=== PATIENT | male | born 1995 | race Two or more races ===

== ENCOUNTER 2024-10-28 08:30 | Emergency (ER) | payer BC, OTHER ==
[~2024-10-28] VITALS: Ht 180.3 cm; Wt 156.7 kg
--- NOTE | 2024-10-28 10:58 | ED.PDOC ---
History of Present Illness HPI Comments 29 y/o M, with a Hx of morbid obesity and tobacco use, presents with c/o lower left leg pain and redness and left foot bruising, today. Patient endorses injuring his left leg and foot, while working out with weighted bar 5x days ago. Patient states on bar dropping and bouncing back before hitting the osborne and landing on his left foot. Patient reports on still being able to walk in addition to feeling pain only when pressure is applied to his front osborne area. Patient denies having any additional pertinent or relevant Hx in along with any additional injuries. Denies having any weakness, numbness, fever, chills, or other associated symptoms or modifiers at this time. Chief Complaint: Lower Extremity Time Seen by MD: 10:45 Reviewed Notes: Nurses Notes, Medications, Allergies Allergies: Coded Allergies: NO KNOWN ALLERGIES (Unverified , 10/28/24) Home Meds Active Scripts Tramadol HCl (Tramadol HCl) 50 Mg Tab, 50 MG PO Q12HP PRN for 5 Days, #10 TAB Prov:DEXTER SCHWARTZ MD 10/28/24 Clindamycin Hcl (Clindamycin Hcl) 300 Mg Cap, 1 CAP PO TID, #21 CAP Prov:DEXTER SCHWARTZ MD 10/28/24 Information Source: Patient Mode of Arrival: Ambulatory Severity: Moderate Timing: Days Duration: Since onset Prehospital treatment: None Past Medical History Past Medical History (Other): morbid obesity Surgical History: Denies all surgeries Family History Family History: Unknown Social History Smoker: Cigarettes Alcohol: Denies ETOH Use Drugs: Denies Drug Use Lives In: Home Constitutional: denies: chills, diaphoresis, fatigue, fever, malaise, sweats, weakness, others EENTM: denies: blurred vision, double vision, ear bleeding, ear discharge, ear drainage, ear pain, ear ringing, eye pain, eye redness, hearing loss, mouth alexei n, mouth swelling, nasal discharge, nose bleeding, nose congestion, nose pain, photophobia, tearing, throat pain, throat swelling, voice changes, others Respiratory: denies: cough, hemoptysis, orthopnea, SOB at rest, shortness of breath, SOB with excertion, stridor, wheezing, others Cardiovascular: denies: chest pain, dizzy spells, diaphoresis, Dyspnea on exertion, edema, irregular heart beat, left arm pain, lightheadedness, palpitations, PND, syncope, others Gastrointestinal: denies: abdomen distended, abdominal pain, blood streaked bowels, constipated, diarrhea, dysphagia, difficulty swallowing, hematemesis, melena, nausea, poor appetite, poor fluid intake, rectal bleeding, rectal pain, vomiting, others Genitourinary: denies: burning, dysuria, flank pain, frequency, hematuria, incontinence, penile discharge, penile sore, pain, testicle pain, testicle swelling, urgency, others Neurological: denies: dizziness, fainting, headache, left sided numbness, left sided weakness, numbness, paresthesia, pre-existing deficit, right sided numbness, right sided weakness, seizure, speech problems, tingling, tremors, weakness, others Musculoskeletal: reports: others (left lower leg pain); denies: back pain, gout, joint pain, joint swelling, muscle pain, muscle stiffness, neck pain Integumetry: reports: bruises (left foot), change in color (left lower leg redness); denies: change in hair/nails, dryness, laceration, lesions, lumps, rash, wounds, others Allergic/Immunocompromised: denies: Difficulty Healing, Frequent Infections, Hives, Itching, others Hematologic/Lymphatic: denies: anemia, blood clots, easy bleeding, easy bruising, swollen glands, others Endocrine: denies: excessive hunger, excessive sweating, excessive thirst, excessive urination, flushing, intolerance to cold, intolerance to heat, unexplained weight gain, unexplained weight loss, others Psychiatric: denies: anxiety, bipolar disorder, depression, hopeless, panic disorder, schizophrenia, sleepless, suicidal, others All Other Systems: Reviewed and Negative Physical Exam General Appearance: No Apparent Distress, Obese HEENT: Normal ENT Inspection, Pharynx Normal, TMs Normal Neck: Full Range of Motion, Non-Tender, Normal, Normal Inspection Respiratory: Chest Non-Tender, Lungs Clear, No Accessory Muscle Use, No Respiratory Distress, Normal Breath Sounds Cardiovascular: No Edema, No JVD, No Murmur, No Gallop, Normal Peripheral Pulses, Regular Rate/Rhythm Breast Exam: Deferred Gastrointestinal: No Organomegaly, Non Tender, No Pulsatile Mass, Normal Bowel Sounds, Soft Genitalia: Deferred Pelvic: Deferred Rectal: Deferred Extremities: No calf tenderness, Normal capillary refill, No pedal edema, Other (Redness and tenderness to the anterior aspect of the tib-fib and left leg) Musculoskeletal : Apperance: Normal Neurologic: Alert, market research manager II-XII nml as Tested, No Motor Deficits, Normal Affect, Normal Mood, No Sensory Deficits Cerebellar Function: Normal Reflexes: Normal Skin: Dry, Rash, Warm Lymphatic: No Adenopathy Was a procedure done? Was a procedure done?: No Differential Dx Considerations may include: fracture, dislocation, sprain, bruising X-Ray, Labs, Meds, VS Vital Signs Date Time Temp Pulse Resp B/P (MAP) Pulse Ox O2 Delivery O2 Flow Rate FiO2 10/28/24 08:48 98.0 111 18 159/101 (120) 98 Ultrasound of the left lower extremity shows: No sign of any DVT after review. The patient was discharged with a prescription of tramadol and clindamycin The diagnosis is left leg cellulitis The patient will return to the emergency department's the condition worsens The patient is not a diabetic so we do not feel that the patient needs to be admitted at this time The patient can tolerate oral medications Images Reviewed?: Images reviewed and evaluated by me Time of 1ST Reevaluation: 11:15 Reevaluation 1ST: Unchanged Patient Education/Counseling: Diagnosis, Treatment, Prognosis, Need For Follow Up Family Education/Counseling: No Family Present Departure 1 Departure Time of Disposition: 12:01 Impression: Primary Impression: Left leg cellulitis Disposition: HOME / SELF CARE / HOMELESS Condition: Fair e-Prescriptions Tramadol HCl (Tramadol HCl) 50 Mg Tab 50 MG PO Q12HP PRN for 5 Days, #10 TAB Prov: DEXTER SCHWARTZ MD 10/28/24 Clindamycin Hcl (Clindamycin Hcl) 300 Mg Cap 1 CAP PO TID, #21 CAP Prov: DEXTER SCHWARTZ MD 10/28/24 Discharged With: Self Critical Care Note Critical Care Time?: No Stability Stability form required: No Heart Score Heart Score: Heart Score Response (Comments) Value History N/A 0 EKG N/A 0 Age N/A 0 Risk Factors N/A 0 Troponin N/A 0 Total 0 I personally scribed for DEXTER SCHWARTZ MD ([email or web address]) on 10/28/24 at 10:58. Electronically submitted by Marbin Lentz ([email or web address]). DEXTER SCHWARTZ MD Oct 28, 2024 10:58
--- NOTE | 2024-10-28 11:49 | DVH ---
CLINICAL HISTORY: Left lower extremity pain, swelling, redness. COMPARISON: None TECHNIQUE: Compression evaluation and color doppler evaluation of the deep veins of the left lower ex tremity was performed. Evaluation for augmentation and flow characteristics with doppler pulse wave i maging was performed. FINDINGS: This examination demonstrates normal compression, augmentation, and phasic flow of the left lower extremity. No evidence for echogenic thrombus within the left common femoral, femoral, and pop liteal veins. The calf veins demonstrated normal compression and color flow. IMPRESSION: There is no evidence for DVT in the left lower extremity.
[2024-10-28] MEDS ORDERED: TRAM-626 PO (11:58)
[2024-10-28] MEDS ORDERED: CLIN1CAP70 PO (11:58)
[2024-10-28 12:23] VITALS: BP 154/93; PULSE 105; RESP 17; TEMP 98.7; O2SAT 97
== END 2024-10-28 12:25 | disposition home or self-care (01) ==
LOC: ER 08:30
DX: L03.116 Cellulitis of left lower limb (principal); F17.210 Nicotine dependence, cigarettes, uncomplicated; E66.01 Morbid (severe) obesity due to excess calories; Z68.42 Body mass index [BMI] 45.0-49.9, adult; Z79.899 Other long term (current) drug therapy
CPT/HCPCS: 93971